=== PATIENT | female | born 1950 | race Two or more races ===

== ENCOUNTER 2018-02-19 11:36 | Emergency (ER) | payer OTHER ==
[~2018-02-19] VITALS: Ht 162.6 cm; Wt 76.2 kg
[2018-02-19] MEDS ORDERED: SYNTHROID100 MCG PO (11:51)
[2018-02-19] MEDS ORDERED: ZANTAC150 M3 PO (11:52)
[2018-02-19] MEDS ORDERED: VERAPAMIL ER240 MG PO (11:52)
[2018-02-19] MEDS ORDERED: COZAAR100 MG PO (11:52)
[2018-02-19] MEDS ORDERED: PROTONIX20 MG PO (11:53)
[2018-02-19] MEDS ORDERED: INTESTINEX680 M1 PO (18:44)
[2018-02-19] MEDS ORDERED: LEVSIN/SL0.125 MG PO (18:44)
[2018-02-19] MEDS ORDERED: PEPCID AC20 MG PO (18:44)
[2018-02-19] MEDS ORDERED: CIPRO500 MG PO (18:44)
[2018-02-19] MEDS ORDERED: METRONIDAZOLE500 MG PO (18:44)
== END 2018-02-19 19:38 | disposition home or self-care (01) ==
LOC: ER 11:36
DX: K57.30 Diverticulosis of large intestine without perforation or abscess without bleeding (principal); N39.0 Urinary tract infection, site not specified; R10.32 Left lower quadrant pain; R10.12 Left upper quadrant pain

== ENCOUNTER 2018-09-10 05:35 | Day surgery (SDC) | payer OTHER ==
[~2018-09-10 05:35] MED LIST: CIPRO500 MG PO; CLONAZEP PO; COZAAR100 MG PO; INTESTINEX680 M1 PO; LEVSIN/SL0.125 MG PO; LOSARTAN POTAS100 MG PO; METRONIDAZOLE500 MG PO; PEPCID AC20 MG PO; PROTONIX20 MG PO; SYNTHROID100 MCG PO; VERAPAMIL ER240 MG PO; ZANTAC150 M3 PO
== END 2018-09-10 12:30 | disposition home or self-care (01) ==
LOC: CIR.AMB 05:35
DX: N95.0 Postmenopausal bleeding (principal)

== ENCOUNTER → 2019-10-15 10:57 | Outpatient (CLI) | payer OTHER | END | disposition home or self-care (01) | LOC: LAB 10:57 | DX: E11.42 Type 2 diabetes mellitus with diabetic polyneuropathy (principal); E21.0 Primary hyperparathyroidism; K57.32 Diverticulitis of large intestine without perforation or abscess without bleeding; K65.1 Peritoneal abscess ==

== ENCOUNTER 2019-10-22 09:14 | Day surgery (SDC) | payer OTHER | END 2019-10-22 14:00 | disposition home or self-care (01) | LOC: AMB-ENDOS 09:14 | DX: K57.32 Diverticulitis of large intestine without perforation or abscess without bleeding (principal); K64.1 Second degree hemorrhoids ==

== ENCOUNTER 2020-04-24 19:42 | Emergency (ER) | payer OTHER ==
[~2020-04-24] VITALS: Ht 162.6 cm; Wt 75.3 kg
[2020-04-24] MEDS ORDERED: ESGIC 50-325-41 EACH PO (21:34)
== END 2020-04-24 21:35 | disposition home or self-care (01) ==
LOC: ER 19:42
DX: R53.81 Other malaise (principal); R51.9 Headache, unspecified; Z03.818 Encounter for observation for suspected exposure to other biological agents ruled out

== ENCOUNTER 2021-01-07 21:45 | Emergency (ER) | payer OTHER ==
[~2021-01-07] VITALS: Ht 162.6 cm; Wt 66.7 kg
[~2021-01-07 21:45] MED LIST changes: +ESGIC 50-325-41 EACH PO
[2021-01-07] MEDS ORDERED: LASIX20 MG (21:58)
[2021-01-07] MEDS ORDERED: VERELAN240 MG (21:58)
[2021-01-07] MEDS ORDERED: ZIAC 10/6.25 MG1 TAB (21:58)
[2021-01-07] MEDS ORDERED: JANUVIA100 MG (21:59)
[2021-01-07] MEDS ORDERED: SYNTHROID88 MCG (21:59)
[2021-01-07] MEDS ORDERED: ZOLPIDEM TART1.75 MG (22:00)
[2021-01-08] MEDS ORDERED: CIPRO500 MG PO (03:13)
[2021-01-08] MEDS ORDERED: LEVSIN/SL0.125 MG SL (03:13)
[2021-01-08] MEDS ORDERED: DOLOGESIC 500-1 EACH PO (03:13)
[2021-01-08] MEDS ORDERED: FLAGYL500MG PO (03:13)
== END 2021-01-08 03:28 | disposition home or self-care (01) ==
LOC: ER 21:45
DX: K57.30 Diverticulosis of large intestine without perforation or abscess without bleeding (principal); R10.32 Left lower quadrant pain

== ENCOUNTER 2021-11-02 09:55 | Emergency (ER) | payer OTHER ==
[~2021-11-02] VITALS: Ht 162.6 cm; Wt 67.6 kg
[~2021-11-02 09:55] MED LIST changes: +DOLOGESIC 500-1 EACH PO; +FLAGYL500MG PO; +JANUVIA100 MG; +LASIX20 MG; +LEVSIN/SL0.125 MG SL; +SYNTHROID88 MCG; +VERELAN240 MG; +ZIAC 10/6.25 MG1 TAB; +ZOLPIDEM TART1.75 MG
[2021-11-02] MEDS ORDERED: SKELAGESIC PO (14:13)
[2021-11-02] MEDS ORDERED: CEPACOL SORE T1 EAC1 PO (14:13)
== END 2021-11-02 14:16 ==
LOC: ER 09:55
DX: U07.1 COVID-19 (principal); I10 Essential (primary) hypertension; E11.9 Type 2 diabetes mellitus without complications; E03.9 Hypothyroidism, unspecified; Z88.0 Allergy status to penicillin; Z88.6 Allergy status to analgesic agent

== ENCOUNTER 2021-11-02 13:00 | Outpatient (CLI) | payer OTHER ==
[2021-11-02] MEDS ORDERED: SKELAGESIC PO (14:13)
[2021-11-02] MEDS ORDERED: CEPACOL SORE T1 EAC1 PO (14:13)
== END 2021-11-02 13:40 | disposition home or self-care (01) ==
LOC: ASH CLINIC 13:00
PROVIDERS: ATTEND General Practice
DX: U07.1 COVID-19 (principal)

== ENCOUNTER 2023-02-01 09:47 | Inpatient (IN) | payer OTHER ==
[~2023-02-01] VITALS: Ht 162.6 cm; Wt 63.5 kg
[~2023-02-01 09:47] MED LIST changes: +CEPACOL SORE T1 EAC1 PO; +SKELAGESIC PO
[2023-02-01] MEDS ORDERED: JANUVIA50 MG PO (10:05)
[2023-02-01] MEDS ORDERED: CARAFATE1 GM PO (10:06)
[2023-02-01] MEDS ORDERED: PREVACID30 MG PO (10:06)
== END 2023-02-04 18:27 | disposition home or self-care (01) | DRG 392 ==
LOC: ER 09:47 → MEDJ 20:43
PROVIDERS: General Practice; Nurse Practitioner Family; ADMIT Specialist; ATTEND Specialist
PROC: BW21YZZ Computerized Tomography (CT Scan) of Abdomen and Pelvis using Other Contrast (ICD-10-PCS; principal; 2023-02-01)
DX: K57.32 Diverticulitis of large intestine without perforation or abscess without bleeding (principal); K62.5 Hemorrhage of anus and rectum; I10 Essential (primary) hypertension; E11.8 Type 2 diabetes mellitus with unspecified complications; Z79.4 Long term (current) use of insulin

== ENCOUNTER 2023-06-30 17:27 | Emergency (ER) | payer OTHER ==
[~2023-06-30] VITALS: Ht 162.6 cm; Wt 61.7 kg
[~2023-06-30 17:27] MED LIST changes: +CARAFATE1 GM PO; +JANUVIA50 MG PO; +PREVACID30 MG PO
[2023-07-01 00:41] LABS: URINE APPEARANCE Clear; URINE BILIRRUBIN Negative (NEGATIVE); URINE BLOOD Moderate; URINE COLOR Yellow; URINE GLUCOSE Negative (NEGATIVE); URINE LEUKOCYTE Negative; URINE NITRATE Negative; URINE PROTEIN Negative (NEGATIVE); URINE UROBILINOGEN 0.2 E.U./dl
[2023-07-01 00:44] LABS: URINE BACTERIA 11.3 uL (0.0-1933); URINE RBC 56.6 uL (0.0-20.8)
[2023-07-01 00:44] LABS: HEMATOCRIT 40.6 % (36.0-45.00); HEMOGLOBIN 13.8 g/dL (12.0-15.00); MEAN CELL VOLUME 89.7 fL (80.00-100.00); MEAN CORPUSCULAR HEMOGLOBIN 30.5 pg (27.00-32.0); RED BLOOD COUNT 4.53 M/uL (4.00-6.00); RED CELL DISTRIBUTION WIDTH 14.2 % (11.5-14.5)
[2023-07-01 00:45] LABS: PLATELET COUNT 136 K/uL (150-450)
[2023-07-01 00:58] LABS: ALBUMIN 3.7 gm/dL (3.4-5.0); BILIRUBIN TOTAL 0.48 mg/dL (0.3-1.2); CALCIUM 9.1 mg/dL (8.5-10.1); CREATININE SERUM 0.88 mg/dL (0.55-1.02); GFR 63.16; GLOBULINA 4.3 G/DL (2.4-3.5); POTASSIUM 3.35 mEq/L (3.5-5.1)
== END 2023-07-01 05:06 | disposition home or self-care (01) ==
LOC: ER 17:27
PROVIDERS: Emergency Medicine
DX: R10.9 Unspecified abdominal pain (principal); K57.32 Diverticulitis of large intestine without perforation or abscess without bleeding; K21.9 Gastro-esophageal reflux disease without esophagitis; I10 Essential (primary) hypertension; E11.9 Type 2 diabetes mellitus without complications; Z20.822 Contact with and (suspected) exposure to COVID-19; K57.30 Diverticulosis of large intestine without perforation or abscess without bleeding; Z88.0 Allergy status to penicillin; Z88.6 Allergy status to analgesic agent
CPT/HCPCS: 36415; 96365; 96372; 99284; J3490

== ENCOUNTER 2023-07-30 05:45 | Day surgery (SDC) | payer OTHER ==
[2023-07-30] MEDS ORDERED: MIDAZOLAM HCL 2 MG/2 ML VIAL IV ONE (09:30)
[2023-07-30] MEDS ORDERED: DIPHENHYDRAMINE HCL 50 MG/ML VIAL 1ML IV ONE (09:30)
[2023-07-30] MEDS ORDERED: fentaNYL CITRATE 50 MCG/ML AMPUL IV PUSH ONE (09:30)
== END 2023-07-30 11:15 | disposition home or self-care (01) ==
LOC: AMB-ENDOS 05:45
PROVIDERS: ATTEND Colon & Rectal Surgery
DX: K63.5 Polyp of colon (principal); K57.30 Diverticulosis of large intestine without perforation or abscess without bleeding; D12.0 Benign neoplasm of cecum; Z88.0 Allergy status to penicillin; Z88.6 Allergy status to analgesic agent